=== PATIENT | female | born 1950 | race Two or more races ===

== ENCOUNTER → 2016-10-26 | Outpatient (CLI) | payer MEDICARE, OTHER ==
[2016-10-26 12:18] LABS: Basophils # (auto) 0 uL; Basophils % (auto) 0.6 % (0.0-2.0); Eosinophils # (auto) 0.2 uL; Eosinophils % (auto) 4.2 % (0.0-7.0); Hematocrit 38.6 % (36.0-46.0); Lymphocytes # (auto) 2.3 uL; Lymphocytes % (auto) 41.1 % (10.0-50.0); Mean Corpuscular Hemoglobin 30.5 pg (28.0-32.0); Mean Corpuscular Hgb Conc. 33.8 g/dL (32.0-36.0); Mean Corpuscular Volume 90.4 fL (80.0-100.0); Mean Platelet Volume 9.8 fL (6.9-10.8); Monocytes # (auto) 0.4 uL; Monocytes % (auto) 8.1 % (0.0-12.0); Neutrophils # (auto) 2.5 uL; Nucleated Red Blood Cells % 0.1 %; Platelet Count (auto) 246 10^3/uL (140-450); Red Cell Distribution Width 12.7 % (11.8-14.3); White Blood Cell 5.5 10^3/uL (4.4-10.8)
[2016-10-26 13:13] LABS: Albumin 3.7 g/dL (3.4-5.0); BUN/Creatinine Ratio 17.9; Bilirubin, Direct 0.1 mg/dL (0-0.2); Bilirubin, Total 0.6 mg/dL (0.2-1.0); Calcium 8.9 mg/dL (8.5-10.1); Potassium 4.3 mmol/L (3.5-5.1); Total Protein 7.7 g/dL (6.4-8.2)
== END | disposition home or self-care (01) ==
LOC: LAB 07:43
PROVIDERS: ATTEND Internal Medicine Cardiovascular Disease
DX: I10 Essential (primary) hypertension (principal); E78.00 Pure hypercholesterolemia, unspecified; K74.1 Hepatic sclerosis; E11.9 Type 2 diabetes mellitus without complications; E03.9 Hypothyroidism, unspecified; D64.9 Anemia, unspecified; E55.9 Vitamin D deficiency, unspecified
CPT/HCPCS: 36415; 80048; 80061; 80076; 82306; 83036; 84439; 84443; 85025

== ENCOUNTER → 2016-10-30 | Outpatient (CLI) | payer MEDICARE, OTHER | END | disposition home or self-care (01) | LOC: Rad HDHVI 15:38 | PROVIDERS: ATTEND Internal Medicine Cardiovascular Disease | DX: R06.02 Shortness of breath (principal); M47.894 Other spondylosis, thoracic region; M85.88 Other specified disorders of bone density and structure, other site; Q25.46 Tortuous aortic arch | CPT/HCPCS: 71020 ==

== ENCOUNTER → 2017-09-05 | Outpatient (CLI) | payer MEDICARE, OTHER ==
[2017-09-05 12:15] LABS: Urine Blood TRACE /uL (Negative); Urine Specific Gravity 1.016 (1.001-1.035)
[2017-09-05 12:39] LABS: Basophils # (auto) 0.1 uL; Eosinophils # (auto) 0.3 uL; Hematocrit 38.6 % (36.0-46.0); Hemoglobin 12.6 g/dL (12.2-16.2); Lymphocytes # (auto) 2.2 uL; Lymphocytes % (auto) 39.7 % (10.0-50.0); Mean Corpuscular Hemoglobin 29.9 pg (28.0-32.0); Mean Corpuscular Hgb Conc. 32.8 g/dL (32.0-36.0); Mean Corpuscular Volume 91.2 fL (80.0-100.0); Monocytes # (auto) 0.4 uL; Monocytes % (auto) 7.8 % (0.0-12.0); Neutrophils # (auto) 2.6 uL; Neutrophils % (auto) 46.5 % (37.0-80.0); Nucleated Red Blood Cells % 0.5 %; Platelet Count (auto) 260 10^3/uL (140-450); Red Blood Cells 4.23 10^6/uL (4.0-5.20); Red Cell Distribution Width 12.9 % (11.8-14.3); White Blood Cell 5.5 10^3/uL (4.4-10.8)
[2017-09-05 12:59] LABS: Free T4 (Free Thyroxine) 0.95 ng/dL (0.89-1.76)
[2017-09-05 13:28] LABS: Albumin 3.5 g/dL (3.4-5.0); BUN/Creatinine Ratio 17.2; Bilirubin, Total 0.4 mg/dL (0.2-1.0); Calcium 8.5 mg/dL (8.5-10.1); Potassium 4.4 mmol/L (3.5-5.1); Total Protein 7.4 g/dL (6.4-8.2)
== END | disposition home or self-care (01) ==
LOC: LAB 07:58
PROVIDERS: ATTEND Internal Medicine Cardiovascular Disease
DX: Z00.01 Encounter for general adult medical examination with abnormal findings (principal); E03.9 Hypothyroidism, unspecified; E55.9 Vitamin D deficiency, unspecified; E11.9 Type 2 diabetes mellitus without complications; D51.9 Vitamin B12 deficiency anemia, unspecified; N39.0 Urinary tract infection, site not specified; I10 Essential (primary) hypertension; E78.00 Pure hypercholesterolemia, unspecified
CPT/HCPCS: 36415; 80053; 80061; 81003; 82306; 82607; 83036; 84439; 84443; 85025; 87086

== ENCOUNTER → 2018-08-05 | Outpatient (CLI) | payer MEDICARE, OTHER ==
[2018-08-05 12:42] LABS: Urine Blood Negative /uL (Negative); Urine Specific Gravity 1.011 (1.001-1.035)
[2018-08-05 12:55] LABS: Basophils # (auto) 0 uL; Basophils % (auto) 0.4 % (0.0-2.0); Eosinophils # (auto) 0.1 uL; Eosinophils % (auto) 2.1 % (0.0-7.0); Hematocrit 36.8 % (36.0-46.0); Hemoglobin 12.5 g/dL (12.2-16.2); Lymphocytes % (auto) 34.4 % (10.0-50.0); Mean Corpuscular Hemoglobin 30.5 pg (28.0-32.0); Mean Corpuscular Hgb Conc. 33.9 g/dL (32.0-36.0); Mean Corpuscular Volume 90.1 fL (80.0-100.0); Monocytes # (auto) 0.4 uL; Monocytes % (auto) 6.8 % (0.0-12.0); Neutrophils # (auto) 3.2 uL; Neutrophils % (auto) 56.3 % (37.0-80.0); Platelet Count (auto) 244 10^3/uL (140-450); Red Blood Cells 4.09 10^6/uL (4.0-5.20); Red Cell Distribution Width 12.5 % (11.8-14.3); White Blood Cell 5.7 10^3/uL (4.4-10.8)
[2018-08-05 13:11] LABS: Potassium 3.9 mmol/L (3.5-5.1)
[2018-08-05 13:13] LABS: Free T4 (Free Thyroxine) 0.98 ng/dL (0.89-1.76)
[2018-08-05 13:14] LABS: Folate (Folic Acid) 18.85 ng/mL (5.38-24)
[2018-08-05 13:27] LABS: Albumin 3.8 g/dL (3.4-5.0); BUN/Creatinine Ratio 20.4; Bilirubin, Direct 0.1 mg/dL (0-0.2); Bilirubin, Total 0.4 mg/dL (0.2-1.0); Calcium 9.2 mg/dL (8.5-10.1); Total Protein 7.6 g/dL (6.4-8.2)
== END | disposition home or self-care (01) ==
LOC: LAB 11:06
PROVIDERS: ATTEND Internal Medicine Cardiovascular Disease
DX: E03.9 Hypothyroidism, unspecified (principal); K74.1 Hepatic sclerosis; D51.9 Vitamin B12 deficiency anemia, unspecified; E55.9 Vitamin D deficiency, unspecified; D52.9 Folate deficiency anemia, unspecified; Z79.899 Other long term (current) drug therapy
CPT/HCPCS: 36415; 80048; 80061; 80076; 81003; 82306; 82607; 82746; 83036; 84439; 84443; 85025

== ENCOUNTER → 2018-10-23 | Outpatient (CLI) | payer MEDICARE, OTHER ==
[2018-10-23 15:10] VITALS: BP 184/99
[2018-10-23 15:41] VITALS: BP 173/94
--- NOTE | 2018-10-23 15:41 | NUR ---
IN FOR CT SCAN OF HEAD WITH IV CONTRAST FOR DIZZINESS. TOLERATED PROCEDURE WELL. DISCHARGED TO CARE OF FAMILY. ALL CARE PROVIDED BY AICHA RASHID.
== END | disposition home or self-care (01) ==
LOC: Rad HDHVI 15:10
PROVIDERS: ATTEND Internal Medicine Cardiovascular Disease
DX: R51 Headache (principal); R42 Dizziness and giddiness; I67.2 Cerebral atherosclerosis
CPT/HCPCS: 70470; G0463; Q9967

== ENCOUNTER → 2018-10-28 | Outpatient (CLI) | payer MEDICARE, OTHER ==
[~2018-10-28] MED LIST: IOHEXOL 350 MG/ML 100ML IJ ONE
[2018-10-28 11:19] VITALS: BP 170/86
[2018-10-28 11:46] VITALS: BP 176/99
== END | disposition home or self-care (01) ==
LOC: Rad HDHVI 11:09
PROVIDERS: ATTEND Internal Medicine Cardiovascular Disease
DX: I08.1 Rheumatic disorders of both mitral and tricuspid valves (principal); I25.118 Atherosclerotic heart disease of native coronary artery with other forms of angina pectoris; I70.0 Atherosclerosis of aorta; I10 Essential (primary) hypertension; G20 Parkinson's disease; E78.5 Hyperlipidemia, unspecified; I73.9 Peripheral vascular disease, unspecified; E78.00 Pure hypercholesterolemia, unspecified; I63.9 Cerebral infarction, unspecified; I27.20 Pulmonary hypertension, unspecified
CPT/HCPCS: 70496; 93306; G0166; Q9967

== ENCOUNTER → 2018-10-29 | Outpatient (CLI) | payer MEDICARE, OTHER ==
[2018-10-29 11:14] VITALS: BP 155/92
[2018-10-29 11:44] VITALS: BP 155/97
== END | disposition home or self-care (01) ==
LOC: CHF HDHVI 10:37
PROVIDERS: ATTEND Internal Medicine Cardiovascular Disease
DX: I25.118 Atherosclerotic heart disease of native coronary artery with other forms of angina pectoris (principal); I10 Essential (primary) hypertension; I63.9 Cerebral infarction, unspecified; I73.9 Peripheral vascular disease, unspecified; G20 Parkinson's disease; E78.5 Hyperlipidemia, unspecified; E78.00 Pure hypercholesterolemia, unspecified
CPT/HCPCS: G0166

== ENCOUNTER → 2018-10-30 | Outpatient (CLI) | payer MEDICARE, OTHER ==
[2018-10-30 09:42] VITALS: BP 165/87
[2018-10-30 10:23] VITALS: BP 165/90
== END | disposition home or self-care (01) ==
LOC: CHF HDHVI 09:21
PROVIDERS: ATTEND Internal Medicine Cardiovascular Disease
DX: I25.118 Atherosclerotic heart disease of native coronary artery with other forms of angina pectoris (principal); I10 Essential (primary) hypertension; I73.9 Peripheral vascular disease, unspecified; I63.9 Cerebral infarction, unspecified; G20 Parkinson's disease; E78.5 Hyperlipidemia, unspecified; E78.00 Pure hypercholesterolemia, unspecified
CPT/HCPCS: G0166

== ENCOUNTER → 2018-10-31 | Outpatient (CLI) | payer MEDICARE, OTHER ==
[2018-10-31 10:14] VITALS: BP 173/89
[2018-10-31 10:45] VITALS: BP 160/95
== END | disposition home or self-care (01) ==
LOC: CHF HDHVI 09:54
PROVIDERS: ATTEND Internal Medicine Cardiovascular Disease
DX: I63.9 Cerebral infarction, unspecified (principal); I25.118 Atherosclerotic heart disease of native coronary artery with other forms of angina pectoris; G20 Parkinson's disease; E78.5 Hyperlipidemia, unspecified; E78.00 Pure hypercholesterolemia, unspecified; I10 Essential (primary) hypertension
CPT/HCPCS: G0166

== ENCOUNTER → 2018-11-01 | Outpatient (CLI) | payer MEDICARE, OTHER ==
[2018-11-01 10:23] VITALS: BP 167/86
[2018-11-01 10:57] VITALS: BP 186/96
== END | disposition home or self-care (01) ==
LOC: CHF HDHVI 10:12
PROVIDERS: ATTEND Internal Medicine Cardiovascular Disease
DX: I25.118 Atherosclerotic heart disease of native coronary artery with other forms of angina pectoris (principal); I63.9 Cerebral infarction, unspecified; E78.5 Hyperlipidemia, unspecified; E78.00 Pure hypercholesterolemia, unspecified; G20 Parkinson's disease; I10 Essential (primary) hypertension; R06.02 Shortness of breath
CPT/HCPCS: G0166

== ENCOUNTER → 2018-11-04 | Outpatient (CLI) | payer MEDICARE, OTHER ==
[2018-11-04 10:40] VITALS: BP 158/93
[2018-11-04 10:58] VITALS: BP 145/100
== END | disposition home or self-care (01) ==
LOC: CHF HDHVI 10:25
PROVIDERS: ATTEND Internal Medicine Cardiovascular Disease
DX: I25.118 Atherosclerotic heart disease of native coronary artery with other forms of angina pectoris (principal); I10 Essential (primary) hypertension; G20 Parkinson's disease; E78.5 Hyperlipidemia, unspecified; E78.00 Pure hypercholesterolemia, unspecified; I63.9 Cerebral infarction, unspecified
CPT/HCPCS: G0166

== ENCOUNTER → 2018-11-05 | Outpatient (CLI) | payer MEDICARE, OTHER ==
[2018-11-05 10:38] VITALS: BP 134/84
[2018-11-05 10:44] VITALS: BP 152/99
== END | disposition home or self-care (01) ==
LOC: CHF HDHVI 10:29
PROVIDERS: ATTEND Internal Medicine Cardiovascular Disease
DX: I25.118 Atherosclerotic heart disease of native coronary artery with other forms of angina pectoris (principal); I10 Essential (primary) hypertension; G20 Parkinson's disease; E78.5 Hyperlipidemia, unspecified; E78.00 Pure hypercholesterolemia, unspecified; R06.02 Shortness of breath; I63.9 Cerebral infarction, unspecified
CPT/HCPCS: G0166

== ENCOUNTER → 2018-11-06 | Outpatient (CLI) | payer MEDICARE, OTHER ==
[2018-11-06 10:33] VITALS: BP 151/91
[2018-11-06 11:10] VITALS: BP 152/94
== END | disposition home or self-care (01) ==
LOC: CHF HDHVI 09:51
PROVIDERS: ATTEND Internal Medicine Cardiovascular Disease
DX: I25.118 Atherosclerotic heart disease of native coronary artery with other forms of angina pectoris (principal); I10 Essential (primary) hypertension; G20 Parkinson's disease; E78.5 Hyperlipidemia, unspecified; E78.00 Pure hypercholesterolemia, unspecified; R06.02 Shortness of breath; I63.9 Cerebral infarction, unspecified
CPT/HCPCS: G0166

== ENCOUNTER → 2018-11-07 | Outpatient (CLI) | payer MEDICARE, OTHER ==
[2018-11-07 12:04] VITALS: BP 156/92
[2018-11-07 12:07] VITALS: BP 162/103
== END | disposition home or self-care (01) ==
LOC: CHF HDHVI 11:53
PROVIDERS: ATTEND Internal Medicine Cardiovascular Disease
DX: I25.118 Atherosclerotic heart disease of native coronary artery with other forms of angina pectoris (principal); I10 Essential (primary) hypertension; G20 Parkinson's disease; E78.5 Hyperlipidemia, unspecified; E78.00 Pure hypercholesterolemia, unspecified; R06.02 Shortness of breath; I63.9 Cerebral infarction, unspecified
CPT/HCPCS: G0166

== ENCOUNTER → 2018-11-08 | Outpatient (CLI) | payer MEDICARE, OTHER ==
[2018-11-08 10:54] VITALS: BP 143/90
[2018-11-08 10:55] VITALS: BP 148/86
== END | disposition home or self-care (01) ==
LOC: Rad HDHVI 08:46
PROVIDERS: ATTEND Internal Medicine Cardiovascular Disease
DX: I25.118 Atherosclerotic heart disease of native coronary artery with other forms of angina pectoris (principal); I10 Essential (primary) hypertension; I73.9 Peripheral vascular disease, unspecified; G20 Parkinson's disease; E78.5 Hyperlipidemia, unspecified; I63.9 Cerebral infarction, unspecified
CPT/HCPCS: G0166

== ENCOUNTER → 2018-11-11 | Outpatient (CLI) | payer MEDICARE, OTHER ==
[2018-11-11 10:37] VITALS: BP 154/88
[2018-11-11 11:00] VITALS: BP 147/91
== END | disposition home or self-care (01) ==
LOC: CHF HDHVI 10:26
PROVIDERS: ATTEND Internal Medicine Cardiovascular Disease
DX: I25.118 Atherosclerotic heart disease of native coronary artery with other forms of angina pectoris (principal); I73.9 Peripheral vascular disease, unspecified; G20 Parkinson's disease; I10 Essential (primary) hypertension; E78.5 Hyperlipidemia, unspecified; E78.00 Pure hypercholesterolemia, unspecified; R06.02 Shortness of breath; I63.9 Cerebral infarction, unspecified
CPT/HCPCS: G0166

== ENCOUNTER → 2018-11-12 | Outpatient (CLI) | payer MEDICARE, OTHER ==
[2018-11-12 09:56] VITALS: BP 152/88
[2018-11-12 10:37] VITALS: BP 167/98
== END | disposition home or self-care (01) ==
LOC: CHF HDHVI 09:38
PROVIDERS: ATTEND Internal Medicine Cardiovascular Disease
DX: I25.118 Atherosclerotic heart disease of native coronary artery with other forms of angina pectoris (principal); I10 Essential (primary) hypertension; I73.9 Peripheral vascular disease, unspecified; G20 Parkinson's disease; E78.5 Hyperlipidemia, unspecified; E78.00 Pure hypercholesterolemia, unspecified; I63.9 Cerebral infarction, unspecified
CPT/HCPCS: G0166

== ENCOUNTER → 2018-11-13 | Outpatient (CLI) | payer MEDICARE, OTHER ==
[2018-11-13 10:10] VITALS: BP 153/90
[2018-11-13 10:41] VITALS: BP 162/92
== END | disposition home or self-care (01) ==
LOC: CHF HDHVI 10:01
PROVIDERS: ATTEND Internal Medicine Cardiovascular Disease
DX: I25.118 Atherosclerotic heart disease of native coronary artery with other forms of angina pectoris (principal); I10 Essential (primary) hypertension; I73.9 Peripheral vascular disease, unspecified; G20 Parkinson's disease; E78.5 Hyperlipidemia, unspecified; E78.00 Pure hypercholesterolemia, unspecified; I63.9 Cerebral infarction, unspecified
CPT/HCPCS: G0166

== ENCOUNTER → 2018-11-14 | Outpatient (CLI) | payer MEDICARE, OTHER ==
[2018-11-14 10:07] VITALS: BP 153/89
[2018-11-14 10:25] VITALS: BP 159/93
== END | disposition home or self-care (01) ==
LOC: CHF HDHVI 10:02
PROVIDERS: ATTEND Internal Medicine Cardiovascular Disease
DX: I25.118 Atherosclerotic heart disease of native coronary artery with other forms of angina pectoris (principal); I10 Essential (primary) hypertension; I73.9 Peripheral vascular disease, unspecified; G20 Parkinson's disease; E78.5 Hyperlipidemia, unspecified; E78.00 Pure hypercholesterolemia, unspecified; I63.9 Cerebral infarction, unspecified
CPT/HCPCS: G0166

== ENCOUNTER → 2018-11-15 | Outpatient (CLI) | payer MEDICARE, OTHER ==
[2018-11-15 09:54] VITALS: BP 151/96
[2018-11-15 10:32] VITALS: BP 153/92
== END | disposition home or self-care (01) ==
LOC: CHF HDHVI 09:37
PROVIDERS: ATTEND Internal Medicine Cardiovascular Disease
DX: I25.118 Atherosclerotic heart disease of native coronary artery with other forms of angina pectoris (principal); I10 Essential (primary) hypertension; G20 Parkinson's disease; E78.5 Hyperlipidemia, unspecified; E78.00 Pure hypercholesterolemia, unspecified; I63.9 Cerebral infarction, unspecified
CPT/HCPCS: G0166

== ENCOUNTER → 2018-11-18 | Outpatient (CLI) | payer MEDICARE, OTHER ==
[2018-11-18 09:56] VITALS: BP 151/87
[2018-11-18 10:42] VITALS: BP 153/88
== END | disposition home or self-care (01) ==
LOC: CHF HDHVI 09:30
PROVIDERS: ATTEND Internal Medicine Cardiovascular Disease
DX: I25.118 Atherosclerotic heart disease of native coronary artery with other forms of angina pectoris (principal); I73.9 Peripheral vascular disease, unspecified; I10 Essential (primary) hypertension; G20 Parkinson's disease; E78.5 Hyperlipidemia, unspecified; E78.00 Pure hypercholesterolemia, unspecified; I63.9 Cerebral infarction, unspecified
CPT/HCPCS: G0166

== ENCOUNTER → 2018-11-19 | Outpatient (CLI) | payer MEDICARE, OTHER ==
--- NOTE | 2018-11-19 09:46 | NUR ---
Signature Attestation Statement: Natividad GEORGE performed this procedure EECP on this patient. Addendum: 11/19/18 at 1038 by ARNALDO GEORGE HDHI2 Amended: Links added.
[2018-11-19 10:36] VITALS: BP 146/88
--- NOTE | 2018-11-19 10:39 | NUR ---
Signature Attestation Statement: Natividad GEORGE performed this procedure EECP on this patient. Addendum: 11/19/18 at 1043 by ARNALDO GEORGE HDHI2 Amended: Links added.
--- NOTE | 2018-11-19 10:52 | NUR ---
Signature Attestation Statement: Natividad GEORGE performed this procedure EECP on this patient. Addendum: 11/19/18 at 1052 by ARNALDO GEORGE HDHI2 Amended: Links added.
[2018-11-19 10:53] VITALS: BP 169/93
--- NOTE | 2018-11-19 10:53 | NUR ---
Signature Attestation Statement: Natividad GEORGE performed this procedure EECP on this patient. Addendum: 11/19/18 at 1054 by ARNALDO GEORGE HDHI2 Amended: Links added.
== END | disposition home or self-care (01) ==
LOC: CHF HDHVI 10:17
PROVIDERS: ATTEND Internal Medicine Cardiovascular Disease
DX: I25.118 Atherosclerotic heart disease of native coronary artery with other forms of angina pectoris (principal); I10 Essential (primary) hypertension; I73.9 Peripheral vascular disease, unspecified; G20 Parkinson's disease; E78.5 Hyperlipidemia, unspecified; E78.00 Pure hypercholesterolemia, unspecified; I63.9 Cerebral infarction, unspecified
CPT/HCPCS: G0166

== ENCOUNTER → 2018-11-20 | Outpatient (CLI) | payer MEDICARE, OTHER ==
[2018-11-20 09:34] VITALS: BP 155/89
--- NOTE | 2018-11-20 09:34 | NUR ---
Signature Attestation Statement: I ROSS WILEY performed this procedure EECP on this patient. Addendum: 11/20/18 at 1014 by ROSS WILEY HDHI2 Amended: Links added.
--- NOTE | 2018-11-20 09:35 | NUR ---
Signature Attestation Statement: I ROSS WILEY performed this procedure EECP on this patient. Addendum: 11/20/18 at 1016 by ROSS WILEY HDHI2 Amended: Links added.
--- NOTE | 2018-11-20 10:13 | NUR ---
Signature Attestation Statement: I ROSS WILEY performed this procedure EECP on this patient. Addendum: 11/20/18 at 1013 by ROSS WILEY HDHI2 Amended: Links added.
[2018-11-20 10:17] VITALS: BP 149/96
--- NOTE | 2018-11-20 10:19 | NUR ---
Signature Attestation Statement: I ROSS WILEY performed this procedure EECP on this patient. Addendum: 11/20/18 at 1019 by ROSS WILEY HDHI2 Amended: Links added.
== END | disposition home or self-care (01) ==
LOC: CHF HDHVI 09:31
PROVIDERS: ATTEND Internal Medicine Cardiovascular Disease
DX: I25.118 Atherosclerotic heart disease of native coronary artery with other forms of angina pectoris (principal); I10 Essential (primary) hypertension; I73.9 Peripheral vascular disease, unspecified; G20 Parkinson's disease; E78.5 Hyperlipidemia, unspecified; E78.00 Pure hypercholesterolemia, unspecified; R06.02 Shortness of breath; I63.9 Cerebral infarction, unspecified
CPT/HCPCS: G0166

== ENCOUNTER → 2018-11-21 | Outpatient (CLI) | payer MEDICARE, OTHER ==
[2018-11-21 10:26] VITALS: BP 153/88
--- NOTE | 2018-11-21 10:27 | NUR ---
Signature Attestation Statement: I ROSS WILEY performed this procedure EECP on this patient. Addendum: 11/21/18 at 1028 by ROSS WILEY HDHI2 Amended: Links added.
[2018-11-21 10:29] VITALS: BP 160/92
--- NOTE | 2018-11-21 10:29 | NUR ---
Signature Attestation Statement: I ROSS WILEY performed this procedure EECP on this patient. Addendum: 11/21/18 at 1030 by ROSS WILEY HDHI2 Amended: Links added.
--- NOTE | 2018-11-21 10:31 | NUR ---
Signature Attestation Statement: I ROSS WILEY performed this procedure EECP on this patient. Addendum: 11/21/18 at 1031 by ROSS WILEY HDHI2 Amended: Links added.
--- NOTE | 2018-11-21 10:37 | NUR ---
Signature Attestation Statement: I ROSS WILEY performed this procedure EECP on this patient. Addendum: 11/21/18 at 1037 by ROSS WILEY HDHI2 Amended: Links added.
[2018-11-22 10:27] VITALS: BP 142/81
--- NOTE | 2018-11-22 10:27 | NUR ---
Signature Attestation Statement: I ROSS WILEY performed this procedure EECP on this patient. Addendum: 11/22/18 at 1027 by ROSS WILEY HDHI2 Amended: Links added.
--- NOTE | 2018-11-22 10:32 | NUR ---
Signature Attestation Statement: I ROSS WILEY performed this procedure EECP on this patient. Addendum: 11/22/18 at 1032 by ROSS WILEY HDHI2 Amended: Links added.
== END | disposition home or self-care (01) ==
LOC: CHF HDHVI 10:22
PROVIDERS: ATTEND Internal Medicine Cardiovascular Disease
DX: I25.118 Atherosclerotic heart disease of native coronary artery with other forms of angina pectoris (principal); I10 Essential (primary) hypertension; I73.9 Peripheral vascular disease, unspecified; G20 Parkinson's disease; E78.5 Hyperlipidemia, unspecified; E78.00 Pure hypercholesterolemia, unspecified; I63.9 Cerebral infarction, unspecified
CPT/HCPCS: G0166

== ENCOUNTER → 2018-11-22 | Outpatient (CLI) | payer MEDICARE, OTHER ==
[2018-11-22 09:41] VITALS: BP 150/79
--- NOTE | 2018-11-22 09:42 | NUR ---
Signature Attestation Statement: I ROSS WILEY performed this procedure EECP on this patient. Addendum: 11/22/18 at 0942 by ROSS WILEY HDHI2 Amended: Links added.
--- NOTE | 2018-11-22 09:43 | NUR ---
Signature Attestation Statement: I ROSS WILEY performed this procedure EECP on this patient. Addendum: 11/22/18 at 0944 by ROSS WILEY HDHI2 Amended: Links added.
== END | disposition home or self-care (01) ==
LOC: CHF HDHVI 09:24
PROVIDERS: ATTEND Internal Medicine Cardiovascular Disease
DX: I25.118 Atherosclerotic heart disease of native coronary artery with other forms of angina pectoris (principal); I10 Essential (primary) hypertension; I73.9 Peripheral vascular disease, unspecified; G20 Parkinson's disease; E78.5 Hyperlipidemia, unspecified; E78.00 Pure hypercholesterolemia, unspecified; I63.9 Cerebral infarction, unspecified
CPT/HCPCS: G0166

== ENCOUNTER → 2018-11-25 | Outpatient (CLI) | payer MEDICARE, OTHER ==
[2018-11-25 10:19] VITALS: BP 131/73
--- NOTE | 2018-11-25 10:20 | NUR ---
Signature Attestation Statement: I ROSS WILEY performed this procedure EECP on this patient. Addendum: 11/25/18 at 1020 by ROSS WILEY HDHI2 Amended: Links added.
--- NOTE | 2018-11-25 10:21 | NUR ---
Signature Attestation Statement: I ROSS WILEY performed this procedure EECP on this patient. Addendum: 11/25/18 at 1021 by ROSS WILEY HDHI2 Amended: Links added.
--- NOTE | 2018-11-25 10:25 | NUR ---
Signature Attestation Statement: I ROSS WILEY performed this procedure EECP on this patient. Addendum: 11/25/18 at 1026 by ROSS WILEY HDHI2 Amended: Links added.
[2018-11-25 10:26] VITALS: BP 131/78
--- NOTE | 2018-11-25 10:26 | NUR ---
Signature Attestation Statement: I ROSS WILEY performed this procedure EECP on this patient. Addendum: 11/25/18 at 1027 by ROSS WILEY HDHI2 Amended: Links added.
== END | disposition home or self-care (01) ==
LOC: CHF HDHVI 10:08
PROVIDERS: ATTEND Internal Medicine Cardiovascular Disease
DX: I25.118 Atherosclerotic heart disease of native coronary artery with other forms of angina pectoris (principal); I10 Essential (primary) hypertension; I73.9 Peripheral vascular disease, unspecified; G20 Parkinson's disease; E78.5 Hyperlipidemia, unspecified; E78.00 Pure hypercholesterolemia, unspecified; I63.9 Cerebral infarction, unspecified
CPT/HCPCS: G0166

== ENCOUNTER → 2018-11-26 | Outpatient (CLI) | payer MEDICARE, OTHER ==
[2018-11-26 10:25] VITALS: BP_SYST 136; BP_SYST 150; BP_DIAS 81; BP_DIAS 85
--- NOTE | 2018-11-26 10:25 | NUR ---
Signature Attestation Statement: I ROSS WILEY performed this procedure EECP on this patient. Addendum: 11/26/18 at 1025 by ROSS WILEY HDHI2 Amended: Links added.
--- NOTE | 2018-11-26 10:26 | NUR ---
Signature Attestation Statement: I ROSS WILEY performed this procedure EECP on this patient. Addendum: 11/26/18 at 1026 by ROSS WILEY HDHI2 Amended: Links added.
--- NOTE | 2018-11-26 10:27 | NUR ---
Signature Attestation Statement: I ROSS WILEY performed this procedure EECP on this patient. Addendum: 11/26/18 at 1027 by ROSS WILEY HDHI2 Amended: Links added.
--- NOTE | 2018-11-26 10:30 | NUR ---
Signature Attestation Statement: I ROSS WILEY performed this procedure EECP on this patient. Addendum: 11/26/18 at 1031 by ROSS WILEY HDHI2 Amended: Links added.
== END | disposition home or self-care (01) ==
LOC: CHF HDHVI 10:20
PROVIDERS: ATTEND Internal Medicine Cardiovascular Disease
DX: I25.118 Atherosclerotic heart disease of native coronary artery with other forms of angina pectoris (principal); I10 Essential (primary) hypertension; I73.9 Peripheral vascular disease, unspecified; G20 Parkinson's disease; E78.5 Hyperlipidemia, unspecified; E78.00 Pure hypercholesterolemia, unspecified; I63.9 Cerebral infarction, unspecified
CPT/HCPCS: G0166

== ENCOUNTER → 2018-11-27 | Outpatient (CLI) | payer MEDICARE, OTHER ==
[2018-11-27 10:45] VITALS: BP 145/82
--- NOTE | 2018-11-27 10:46 | NUR ---
Signature Attestation Statement: I ROSS WILEY performed this procedure EECP on this patient. Addendum: 11/27/18 at 1047 by ROSS WILEY HDHI2 Amended: Links added.
[2018-11-27 10:47] VITALS: BP 151/89
[2018-11-27 10:48] VITALS: BP 151/89
--- NOTE | 2018-11-27 10:49 | NUR ---
Signature Attestation Statement: I ROSS WILEY performed this procedure EECP on this patient. Addendum: 11/27/18 at 1050 by ROSS WILEY HDHI2 Amended: Links added.
--- NOTE | 2018-11-27 10:49 | NUR ---
Signature Attestation Statement: I ROSS WILEY performed this procedure EECP on this patient. Addendum: 11/27/18 at 1049 by ROSS WILEY HDHI2 Amended: Links added.
--- NOTE | 2018-11-27 11:17 | NUR ---
Signature Attestation Statement: I ROSS WILEY performed this procedure EECP on this patient. Addendum: 11/27/18 at 1117 by ROSS WILEY HDHI2 Amended: Links added.
== END | disposition home or self-care (01) ==
LOC: CHF HDHVI 10:12
PROVIDERS: ATTEND Internal Medicine Cardiovascular Disease
DX: I25.118 Atherosclerotic heart disease of native coronary artery with other forms of angina pectoris (principal); I10 Essential (primary) hypertension; I73.9 Peripheral vascular disease, unspecified; G20 Parkinson's disease; E78.5 Hyperlipidemia, unspecified; E78.00 Pure hypercholesterolemia, unspecified; R06.02 Shortness of breath; I63.9 Cerebral infarction, unspecified
CPT/HCPCS: G0166

== ENCOUNTER → 2018-11-28 | Outpatient (CLI) | payer MEDICARE, OTHER ==
[2018-11-28 10:19] VITALS: BP 140/83
--- NOTE | 2018-11-28 10:19 | NUR ---
Signature Attestation Statement: I ROSS WILEY performed this procedure EECP on this patient. Addendum: 11/28/18 at 1043 by ROSS WILEY HDHI2 Amended: Links added.
[2018-11-28 10:43] VITALS: BP 153/82
--- NOTE | 2018-11-28 10:43 | NUR ---
Signature Attestation Statement: I ROSS WILEY performed this procedure EECP on this patient. Addendum: 11/28/18 at 1044 by ROSS WILEY HDHI2 Amended: Links added.
--- NOTE | 2018-11-28 10:47 | NUR ---
Signature Attestation Statement: I ROSS WILEY performed this procedure EECP on this patient. Addendum: 11/28/18 at 1048 by ROSS WILEY HDHI2 Amended: Links added.
== END | disposition home or self-care (01) ==
LOC: CHF HDHVI 10:15
PROVIDERS: ATTEND Internal Medicine Cardiovascular Disease
DX: I25.118 Atherosclerotic heart disease of native coronary artery with other forms of angina pectoris (principal); I10 Essential (primary) hypertension; E78.5 Hyperlipidemia, unspecified; E78.00 Pure hypercholesterolemia, unspecified; I63.9 Cerebral infarction, unspecified; G20 Parkinson's disease
CPT/HCPCS: G0166

== ENCOUNTER → 2018-11-29 | Outpatient (CLI) | payer MEDICARE, OTHER ==
[2018-11-29 10:36] VITALS: BP 138/77
--- NOTE | 2018-11-29 10:36 | NUR ---
Signature Attestation Statement: I ROSS WILEY performed this procedure EECP on this patient. Addendum: 11/29/18 at 1037 by ROSS WILEY HDHI2 Amended: Links added.
[2018-11-29 10:37] VITALS: BP 145/84
--- NOTE | 2018-11-29 10:38 | NUR ---
Signature Attestation Statement: I ROSS WILEY performed this procedure EECP on this patient. Addendum: 11/29/18 at 1038 by ROSS WILEY HDHI2 Amended: Links added.
--- NOTE | 2018-11-29 10:39 | NUR ---
Signature Attestation Statement: I ROSS WILEY performed this procedure EECP on this patient. Addendum: 11/29/18 at 1039 by ROSS WILEY HDHI2 Amended: Links added.
--- NOTE | 2018-11-29 10:48 | NUR ---
Signature Attestation Statement: I ROSS WILEY performed this procedure EECP on this patient. Addendum: 11/29/18 at 1048 by ROSS WILEY HDHI2 Amended: Links added.
== END | disposition home or self-care (01) ==
LOC: CHF HDHVI 10:31
PROVIDERS: ATTEND Internal Medicine Cardiovascular Disease
DX: I25.118 Atherosclerotic heart disease of native coronary artery with other forms of angina pectoris (principal); I10 Essential (primary) hypertension; I73.9 Peripheral vascular disease, unspecified; G20 Parkinson's disease; E78.5 Hyperlipidemia, unspecified; E78.00 Pure hypercholesterolemia, unspecified; I63.9 Cerebral infarction, unspecified
CPT/HCPCS: G0166

== ENCOUNTER → 2018-12-02 | Outpatient (CLI) | payer MEDICARE, OTHER ==
[2018-12-02 10:47] VITALS: BP 138/78
--- NOTE | 2018-12-02 10:47 | NUR ---
Signature Attestation Statement: I ROSS WILEY performed this procedure EECP on this patient. Addendum: 12/02/18 at 1048 by ROSS WILEY HDHI2 Amended: Links added.
[2018-12-02 10:48] VITALS: BP 136/83
--- NOTE | 2018-12-02 10:49 | NUR ---
Signature Attestation Statement: I ROSS WILEY performed this procedure EECP on this patient. Addendum: 12/02/18 at 1050 by ROSS WILEY HDHI2 Amended: Links added.
--- NOTE | 2018-12-02 10:50 | NUR ---
Signature Attestation Statement: I ROSS WILEY performed this procedure EECP on this patient. Addendum: 12/02/18 at 1051 by ROSS WILEY HDHI2 Amended: Links added.
--- NOTE | 2018-12-02 10:54 | NUR ---
Signature Attestation Statement: I ROSS WILEY performed this procedure EECP on this patient. Addendum: 12/02/18 at 1055 by ROSS WILEY HDHI2 Amended: Links added.
== END | disposition home or self-care (01) ==
LOC: CHF HDHVI 10:29
PROVIDERS: ATTEND Internal Medicine Cardiovascular Disease
DX: I25.118 Atherosclerotic heart disease of native coronary artery with other forms of angina pectoris (principal); I10 Essential (primary) hypertension; I73.9 Peripheral vascular disease, unspecified; G20 Parkinson's disease; E78.5 Hyperlipidemia, unspecified; E78.00 Pure hypercholesterolemia, unspecified; I63.9 Cerebral infarction, unspecified
CPT/HCPCS: G0166

== ENCOUNTER → 2018-12-03 | Outpatient (CLI) | payer MEDICARE, OTHER ==
[2018-12-03 10:54] VITALS: BP 141/78
[2018-12-03 10:55] VITALS: BP 140/87
--- NOTE | 2018-12-03 10:55 | NUR ---
Signature Attestation Statement: I ROSS WILEY performed this procedure EECP on this patient. Addendum: 12/03/18 at 1055 by ROSS WILEY HDHI2 Amended: Links added.
--- NOTE | 2018-12-03 10:55 | NUR ---
Signature Attestation Statement: I ROSS WILEY performed this procedure EECP on this patient. Addendum: 12/03/18 at 1056 by ROSS WILEY HDHI2 Amended: Links added.
--- NOTE | 2018-12-03 10:59 | NUR ---
Signature Attestation Statement: I ROSS WILEY performed this procedure EECP on this patient. Addendum: 12/03/18 at 1100 by ROSS WILEY HDHI2 Amended: Links added.
== END | disposition home or self-care (01) ==
LOC: CHF HDHVI 10:22
PROVIDERS: ATTEND Internal Medicine Cardiovascular Disease
DX: I25.118 Atherosclerotic heart disease of native coronary artery with other forms of angina pectoris (principal); I10 Essential (primary) hypertension; I73.9 Peripheral vascular disease, unspecified; G20 Parkinson's disease; E78.5 Hyperlipidemia, unspecified; E78.00 Pure hypercholesterolemia, unspecified; I63.9 Cerebral infarction, unspecified
CPT/HCPCS: G0166

== ENCOUNTER → 2018-12-04 | Outpatient (CLI) | payer MEDICARE, OTHER ==
[2018-12-04 10:25] VITALS: BP 142/83
--- NOTE | 2018-12-04 10:25 | NUR ---
Signature Attestation Statement: I ROSS WILEY performed this procedure EECP on this patient. Addendum: 12/04/18 at 1026 by ROSS WILEY HDHI2 Amended: Links added.
== END | disposition home or self-care (01) ==
LOC: CHF HDHVI 10:14
PROVIDERS: ATTEND Internal Medicine Cardiovascular Disease
DX: I25.118 Atherosclerotic heart disease of native coronary artery with other forms of angina pectoris (principal); I10 Essential (primary) hypertension; I73.9 Peripheral vascular disease, unspecified; G20 Parkinson's disease; E78.5 Hyperlipidemia, unspecified; E78.00 Pure hypercholesterolemia, unspecified; I63.9 Cerebral infarction, unspecified
CPT/HCPCS: G0166

== ENCOUNTER → 2018-12-05 | Outpatient (CLI) | payer MEDICARE, OTHER ==
[2018-12-05 09:52] VITALS: BP 158/89
--- NOTE | 2018-12-05 09:53 | NUR ---
Signature Attestation Statement: I ROSS WILEY performed this procedure EECP on this patient. Addendum: 12/05/18 at 0953 by ROSS WILEY HDHI2 Amended: Links added.
--- NOTE | 2018-12-05 09:53 | NUR ---
Signature Attestation Statement: I ROSS WILEY performed this procedure EECP on this patient. Addendum: 12/05/18 at 0954 by ROSS WILEY HDHI2 Amended: Links added.
--- NOTE | 2018-12-05 09:58 | NUR ---
Signature Attestation Statement: I ROSS WILEY performed this procedure EECP on this patient. Addendum: 12/05/18 at 1058 by ROSS WILEY HDHI2 Amended: Links added.
--- NOTE | 2018-12-05 10:01 | NUR ---
Signature Attestation Statement: I ROSS WILEY performed this procedure EECP on this patient. Addendum: 12/05/18 at 1002 by ROSS WILEY HDHI2 Amended: Links added.
[2018-12-05 10:02] VITALS: BP 161/89
== END | disposition home or self-care (01) ==
LOC: CHF HDHVI 09:21
PROVIDERS: ATTEND Internal Medicine Cardiovascular Disease
DX: I25.118 Atherosclerotic heart disease of native coronary artery with other forms of angina pectoris (principal); R06.02 Shortness of breath; I10 Essential (primary) hypertension; I63.9 Cerebral infarction, unspecified; G20 Parkinson's disease; E78.5 Hyperlipidemia, unspecified; E78.00 Pure hypercholesterolemia, unspecified
CPT/HCPCS: G0166

== ENCOUNTER → 2018-12-06 | Outpatient (CLI) | payer MEDICARE, OTHER ==
[2018-12-06 09:58] VITALS: BP 141/81
--- NOTE | 2018-12-06 09:58 | NUR ---
Signature Attestation Statement: I ROSS WILEY performed this procedure EECP on this patient. Addendum: 12/06/18 at 0959 by ROSS WILEY HDHI2 Amended: Links added.
--- NOTE | 2018-12-06 10:03 | NUR ---
Signature Attestation Statement: I ROSS WILEY performed this procedure EECP on this patient. Addendum: 12/06/18 at 1004 by ROSS WILEY HDHI2 Amended: Links added.
--- NOTE | 2018-12-06 10:08 | NUR ---
Signature Attestation Statement: I ROSS WILEY performed this procedure EECP on this patient. Addendum: 12/06/18 at 1009 by ROSS WILEY HDHI2 Amended: Links added.
[2018-12-06 10:09] VITALS: BP 160/87
--- NOTE | 2018-12-06 10:15 | NUR ---
Signature Attestation Statement: I ROSS WILEY performed this procedure EECP on this patient. Addendum: 12/06/18 at 1015 by ROSS WILEY HDHI2 Amended: Links added.
== END | disposition home or self-care (01) ==
LOC: CHF HDHVI 09:55
PROVIDERS: ATTEND Internal Medicine Cardiovascular Disease
DX: I25.118 Atherosclerotic heart disease of native coronary artery with other forms of angina pectoris (principal); G20 Parkinson's disease; I10 Essential (primary) hypertension; E78.5 Hyperlipidemia, unspecified; E78.00 Pure hypercholesterolemia, unspecified; I63.9 Cerebral infarction, unspecified; Z79.82 Long term (current) use of aspirin; Z79.899 Other long term (current) drug therapy
CPT/HCPCS: G0166

== ENCOUNTER → 2018-12-09 | Outpatient (CLI) | payer MEDICARE, OTHER ==
[2018-12-09 11:16] VITALS: BP 142/79
[2018-12-09 11:17] VITALS: BP 153/88
--- NOTE | 2018-12-09 11:17 | NUR ---
Signature Attestation Statement: I ROSS WILEY performed this procedure EECP on this patient. Addendum: 12/09/18 at 1117 by ROSS WILEY HDHI2 Amended: Links added.
--- NOTE | 2018-12-09 11:17 | NUR ---
Signature Attestation Statement: I ROSS WILEY performed this procedure EECP on this patient. Addendum: 12/09/18 at 1118 by ROSS WILEY HDHI2 Amended: Links added.
--- NOTE | 2018-12-09 11:22 | NUR ---
Signature Attestation Statement: I ROSS WILEY performed this procedure EECP on this patient. Addendum: 12/09/18 at 1122 by ROSS WILEY HDHI2 Amended: Links added.
== END | disposition home or self-care (01) ==
LOC: CHF HDHVI 11:11
PROVIDERS: ATTEND Internal Medicine Cardiovascular Disease
DX: I25.118 Atherosclerotic heart disease of native coronary artery with other forms of angina pectoris (principal); I10 Essential (primary) hypertension; I73.9 Peripheral vascular disease, unspecified; G20 Parkinson's disease; E78.5 Hyperlipidemia, unspecified; E78.00 Pure hypercholesterolemia, unspecified; I63.9 Cerebral infarction, unspecified
CPT/HCPCS: G0166

== ENCOUNTER → 2018-12-10 | Outpatient (CLI) | payer MEDICARE, OTHER ==
[2018-12-10 10:12] VITALS: BP 145/86
--- NOTE | 2018-12-10 10:12 | NUR ---
Signature Attestation Statement: I ROSS WILEY performed this procedure EECP on this patient. Addendum: 12/10/18 at 1013 by ROSS WILEY HDHI2 Amended: Links added.
[2018-12-10 10:42] VITALS: BP 162/91
--- NOTE | 2018-12-10 10:43 | NUR ---
Signature Attestation Statement: I ROSS WILEY performed this procedure EECP on this patient. Addendum: 12/10/18 at 1044 by ROSS WILEY HDHI2 Amended: Links added.
--- NOTE | 2018-12-10 10:43 | NUR ---
Signature Attestation Statement: I ROSS WILEY performed this procedure EECP on this patient. Addendum: 12/10/18 at 1043 by ROSS WILEY HDHI2 Amended: Links added.
--- NOTE | 2018-12-10 10:49 | NUR ---
Signature Attestation Statement: I ROSS WILEY performed this procedure EECP on this patient. Addendum: 12/10/18 at 1049 by ROSS WILEY HDHI2 Amended: Links added.
== END | disposition home or self-care (01) ==
LOC: CHF HDHVI 09:00
PROVIDERS: ATTEND Internal Medicine Cardiovascular Disease
DX: I25.118 Atherosclerotic heart disease of native coronary artery with other forms of angina pectoris (principal); I10 Essential (primary) hypertension; I73.9 Peripheral vascular disease, unspecified; G20 Parkinson's disease; E78.5 Hyperlipidemia, unspecified; E78.00 Pure hypercholesterolemia, unspecified; I63.9 Cerebral infarction, unspecified
CPT/HCPCS: G0166

== ENCOUNTER → 2018-12-11 | Outpatient (CLI) | payer MEDICARE, OTHER ==
[2018-12-11 10:44] VITALS: BP 136/81
[2018-12-11 10:45] VITALS: BP 145/89
--- NOTE | 2018-12-11 10:45 | NUR ---
Signature Attestation Statement: I ROSS WILEY performed this procedure EECP on this patient. Addendum: 12/11/18 at 1045 by ROSS WILEY HDHI2 Amended: Links added.
--- NOTE | 2018-12-11 10:46 | NUR ---
Signature Attestation Statement: I ROSS WILEY performed this procedure EECP on this patient. Addendum: 12/11/18 at 1046 by ROSS WILEY HDHI2 Amended: Links added.
--- NOTE | 2018-12-11 10:52 | NUR ---
Signature Attestation Statement: I ROSS WILEY performed this procedure EECP on this patient. Addendum: 12/11/18 at 1052 by ROSS WILEY HDHI2 Amended: Links added.
== END | disposition home or self-care (01) ==
LOC: CHF HDHVI 10:03
PROVIDERS: ATTEND Internal Medicine Cardiovascular Disease
DX: I25.118 Atherosclerotic heart disease of native coronary artery with other forms of angina pectoris (principal); I10 Essential (primary) hypertension; I73.9 Peripheral vascular disease, unspecified; G20 Parkinson's disease; E78.5 Hyperlipidemia, unspecified; E78.00 Pure hypercholesterolemia, unspecified; I63.9 Cerebral infarction, unspecified
CPT/HCPCS: G0166

== ENCOUNTER → 2018-12-12 | Outpatient (CLI) | payer MEDICARE, OTHER ==
[2018-12-12 10:23] VITALS: BP 152/82
--- NOTE | 2018-12-12 10:23 | NUR ---
Signature Attestation Statement: I ROSS WILEY performed this procedure EECP on this patient. Addendum: 12/12/18 at 1024 by ROSS WILEY HDHI2 Amended: Links added.
[2018-12-12 11:00] VITALS: BP 162/90
--- NOTE | 2018-12-12 11:00 | NUR ---
Signature Attestation Statement: I ROSS WILEY performed this procedure EECP on this patient. Addendum: 12/12/18 at 1100 by ROSS WILEY HDHI2 Amended: Links added.
--- NOTE | 2018-12-12 11:34 | NUR ---
Signature Attestation Statement: I ROSS WILEY performed this procedure EECP on this patient. Addendum: 12/12/18 at 1134 by ROSS WILEY HDHI2 Amended: Links added.
== END | disposition home or self-care (01) ==
LOC: CHF HDHVI 10:14
PROVIDERS: ATTEND Internal Medicine Cardiovascular Disease
DX: I25.118 Atherosclerotic heart disease of native coronary artery with other forms of angina pectoris (principal); I63.9 Cerebral infarction, unspecified; I10 Essential (primary) hypertension; I73.9 Peripheral vascular disease, unspecified; G20 Parkinson's disease; E78.5 Hyperlipidemia, unspecified; E78.00 Pure hypercholesterolemia, unspecified
CPT/HCPCS: G0166

== ENCOUNTER → 2018-12-13 | Outpatient (CLI) | payer MEDICARE, OTHER ==
[2018-12-13 10:37] VITALS: BP 149/87
--- NOTE | 2018-12-13 10:37 | NUR ---
Signature Attestation Statement: I ROSS WILEY performed this procedure EECP on this patient. Addendum: 12/13/18 at 1038 by ROSS WILEY HDHI2 Amended: Links added.
[2018-12-13 10:38] VITALS: BP 157/53
--- NOTE | 2018-12-13 10:38 | NUR ---
Signature Attestation Statement: I ROSS WILEY performed this procedure EECP on this patient. Addendum: 12/13/18 at 1039 by ROSS WILEY HDHI2 Amended: Links added.
--- NOTE | 2018-12-13 10:42 | NUR ---
Signature Attestation Statement: I ROSS WILEY performed this procedure EECP on this patient. Addendum: 12/13/18 at 1043 by ROSS WILEY HDHI2 Amended: Links added.
== END | disposition home or self-care (01) ==
LOC: CHF HDHVI 10:10
PROVIDERS: ATTEND Internal Medicine Cardiovascular Disease
DX: I25.118 Atherosclerotic heart disease of native coronary artery with other forms of angina pectoris (principal); I10 Essential (primary) hypertension; I63.9 Cerebral infarction, unspecified; R06.02 Shortness of breath; G20 Parkinson's disease; E78.5 Hyperlipidemia, unspecified; E78.00 Pure hypercholesterolemia, unspecified
CPT/HCPCS: G0166

== ENCOUNTER → 2019-08-19 | Outpatient (CLI) | payer MEDICARE, OTHER ==
[2019-08-19 12:11] LABS: Basophils # (auto) 0 10 ^3/uL (0-0.2); Basophils % (auto) 0.5 % (0.0-2.0); Eosinophils # (auto) 0.2 10 ^3/uL (0-0.8); Eosinophils % (auto) 3.9 % (0.0-7.0); Hematocrit 38.2 % (36.0-46.0); Hemoglobin 12.7 g/dL (12.2-16.2); Lymphocytes # (auto) 1.6 10 ^3/uL (0.4-5.4); Mean Corpuscular Hemoglobin 30.2 pg (28.0-32.0); Mean Corpuscular Hgb Conc. 33.2 g/dL (32.0-36.0); Mean Corpuscular Volume 90.9 fL (80.0-100.0); Monocytes # (auto) 0.4 10 ^3/uL (0-1.3); Monocytes % (auto) 6.7 % (0.0-12.0); Neutrophils # (auto) 3.4 10 ^3/uL (1.6-8.6); Neutrophils % (auto) 60.9 % (37.0-80.0); Platelet Count (auto) 228 10^3/uL (140-450); Red Cell Distribution Width 12.8 % (11.8-14.3); White Blood Cell 5.6 10^3/uL (4.4-10.8)
[2019-08-19 12:13] LABS: Urine Blood TRACE /uL (Negative); Urine Specific Gravity 1.014 (1.001-1.035)
[2019-08-19 12:21] LABS: Potassium 4.1 mmol/L (3.5-5.1)
[2019-08-19 12:27] LABS: Albumin 3.6 g/dL (3.4-5.0); BUN/Creatinine Ratio 19.7; Bilirubin, Total 0.6 mg/dL (0.2-1.0); Calcium 8.7 mg/dL (8.5-10.1); Magnesium 2.2 mg/dL (1.6-2.6); Total Protein 7.5 g/dL (6.4-8.2)
== END | disposition home or self-care (01) ==
LOC: CHF HDHVI 07:40
PROVIDERS: ATTEND Internal Medicine Cardiovascular Disease
DX: N39.0 Urinary tract infection, site not specified (principal); E03.9 Hypothyroidism, unspecified; K90.9 Intestinal malabsorption, unspecified; Z79.899 Other long term (current) drug therapy; D51.9 Vitamin B12 deficiency anemia, unspecified; Z00.00 Encounter for general adult medical examination without abnormal findings
CPT/HCPCS: 36415; 80053; 80061; 81003; 82306; 82607; 83036; 83735; 84436; 84443; 85025

== ENCOUNTER → 2020-09-07 | Outpatient (CLI) | payer MEDICARE, OTHER ==
[2020-09-07 11:26] LABS: Basophils # (auto) 0 10 ^3/uL (0-0.2); Basophils % (auto) 0.6 % (0.0-2.0); Eosinophils # (auto) 0.3 10 ^3/uL (0-0.8); Eosinophils % (auto) 4.8 % (0.0-7.0); Hematocrit 37.2 % (36.0-46.0); Hemoglobin 12.7 g/dL (12.2-16.2); Lymphocytes # (auto) 2.1 10 ^3/uL (0.4-5.4); Lymphocytes % (auto) 33.9 % (10.0-50.0); Mean Corpuscular Hemoglobin 31.2 pg (28.0-32.0); Mean Corpuscular Hgb Conc. 34.2 g/dL (32.0-36.0); Mean Corpuscular Volume 91.1 fL (80.0-100.0); Monocytes # (auto) 0.4 10 ^3/uL (0-1.3); Monocytes % (auto) 7.1 % (0.0-12.0); Neutrophils # (auto) 3.3 10 ^3/uL (1.6-8.6); Neutrophils % (auto) 53.6 % (37.0-80.0); Red Blood Cells 4.08 10^6/uL (4.0-5.20); Red Cell Distribution Width 12.7 % (11.8-14.3); White Blood Cell 6.1 10^3/uL (4.4-10.8)
[2020-09-07 11:39] LABS: Potassium 4.2 mmol/L (3.5-5.1)
[2020-09-07 11:49] LABS: Albumin 3.4 g/dL (3.4-5.0); BUN/Creatinine Ratio 18.5; Bilirubin, Total 0.6 mg/dL (0.2-1.0); Calcium 8.9 mg/dL (8.5-10.1); Total Protein 7.7 g/dL (6.4-8.2)
[2020-09-07 11:50] LABS: Free T4 (Free Thyroxine) 1.11 ng/dL (0.89-1.76)
== END | disposition home or self-care (01) ==
LOC: LAB 07:17
PROVIDERS: ATTEND Internal Medicine Cardiovascular Disease
DX: D51.3 Other dietary vitamin B12 deficiency anemia (principal); I10 Essential (primary) hypertension; E11.9 Type 2 diabetes mellitus without complications; E55.9 Vitamin D deficiency, unspecified; D64.9 Anemia, unspecified; R00.2 Palpitations; R53.1 Weakness; R30.0 Dysuria
CPT/HCPCS: 36415; 80053; 80061; 82306; 82607; 83036; 84439; 84443; 85025

== ENCOUNTER → 2021-03-31 | Outpatient (CLI) | payer MEDICARE, OTHER ==
[2021-03-31 11:31] LABS: Potassium 4.1 mmol/L (3.5-5.1)
[2021-03-31 11:56] LABS: Albumin 3.8 g/dL (3.4-5.0); BUN/Creatinine Ratio 21.4; Bilirubin, Total 0.5 mg/dL (0.2-1.0); Calcium 9.1 mg/dL (8.5-10.1); Total Protein 7.7 g/dL (6.4-8.2)
== END | disposition home or self-care (01) ==
LOC: LAB 07:21
PROVIDERS: ATTEND Internal Medicine Cardiovascular Disease
DX: E11.9 Type 2 diabetes mellitus without complications (principal); E03.9 Hypothyroidism, unspecified; E78.5 Hyperlipidemia, unspecified; I10 Essential (primary) hypertension
CPT/HCPCS: 36415; 80053; 80061; 83036; 84439; 84443

== ENCOUNTER → 2022-02-28 | Outpatient (CLI) | payer MEDICARE, OTHER ==
[2022-02-28 15:45] LABS: Basophils # (auto) 0 10 ^3/uL (0-0.2); Basophils % (auto) 0.6 % (0.0-2.0); Eosinophils # (auto) 0.4 10 ^3/uL (0-0.8); Eosinophils % (auto) 6.3 % (0.0-7.0); Hematocrit 38.2 % (36.0-46.0); Hemoglobin 12.9 g/dL (12.2-16.2); Lymphocytes # (auto) 1.7 10 ^3/uL (0.4-5.4); Lymphocytes % (auto) 27.8 % (10.0-50.0); Mean Corpuscular Hemoglobin 31.2 pg (28.0-32.0); Mean Corpuscular Hgb Conc. 33.9 g/dL (32.0-36.0); Mean Corpuscular Volume 92.1 fL (80.0-100.0); Monocytes # (auto) 0.5 10 ^3/uL (0-1.3); Monocytes % (auto) 7.4 % (0.0-12.0); Neutrophils # (auto) 3.5 10 ^3/uL (1.6-8.6); Neutrophils % (auto) 57.9 % (37.0-80.0); Nucleated Red Blood Cells % 0.2 %; Red Blood Cells 4.15 10^6/uL (4.0-5.20); Red Cell Distribution Width 12.6 % (11.8-14.3); White Blood Cell 6.1 10^3/uL (4.4-10.8)
[2022-02-28 15:49] LABS: Albumin 3.8 g/dL (3.4-5.0); Calcium 8.9 mg/dL (8.5-10.1); Potassium 4.5 mmol/L (3.5-5.1)
[2022-02-28 15:56] LABS: BUN/Creatinine Ratio 23.6; Bilirubin, Total 0.9 mg/dL (0.2-1.0); Total Protein 7.1 g/dL (6.4-8.2)
[2022-02-28 16:09] LABS: Free T4 (Free Thyroxine) 1.12 ng/dL (0.89-1.76)
== END | disposition home or self-care (01) ==
LOC: LAB 07:54
PROVIDERS: ATTEND Internal Medicine Cardiovascular Disease
DX: I10 Essential (primary) hypertension (principal); E55.9 Vitamin D deficiency, unspecified
CPT/HCPCS: 36415; 80053; 80061; 82306; 82607; 83036; 84439; 84443; 85025

== ENCOUNTER → 2024-03-05 | Outpatient (CLI) | payer MEDICARE, OTHER | END | disposition home or self-care (01) | LOC: Rad HDHVI 08:01 | PROVIDERS: ATTEND Internal Medicine Cardiovascular Disease | DX: I10 Essential (primary) hypertension (principal) | CPT/HCPCS: 93880 ==

== ENCOUNTER → 2024-03-07 | Outpatient (CLI) | payer MEDICARE, OTHER ==
[~2024-03-07] VITALS: Ht 157.5 cm; Wt 71.2 kg
[~2024-03-07] MED LIST changes: +ADENOSINE 60 MG in GIVE UN-DILUTED 0 ML IV ONE; +ADENOSINE 90 MG/30 ML INJ IV ONE; -IOHEXOL 350 MG/ML 100ML IJ ONE
--- NOTE | 2024-03-07 14:20 | DVHSR ---
APPROVED REPORT EXAM: Two-dimensional and M-mode echocardiogram with Doppler and color Doppler. DIMENSIONS LVDd4.5 (3.8-5.7cm)LA (2D)3.9 (1.9-4.0cm)Aortic Root3.0 (2.0-3.7cm) LVDs3.2 (2.5-4.0cm)LA (MM) (1.9-4.0cm)Aortic Cusp Exc1.9 (1.5-2.0cm) EF (%) 58.0 (55-70%)Rt. Atrium3.8 (1.9-4.0cm)Asc. Aorta3.3 cm IVSd0.9 (0.7-1.1cm)RV (D) (1.8-2.4cm) PWd0.9 (0.7-1.1cm) Mitral Valve MitralMitral Stenosis E wave0.90m/sMV Mean GR.mmHg A wave0.80m/sMV Peak GR.mmHg E/A ratio1.12D MVAcm2 Aortic Valve Aortic ValveAortic Stenosis V10.90m/Alfonso Mean GR.3mmHg V21.10m/Alfonso Peak GR.5mmHg LVOT Diameter2.2 (1.8-2.4cm)Doppler AVA3.11cm2 AI P 1/2 Tldy897.43ms Pulmonic Valve V20.60m/s Tricuspid Valve TR Velocity2.50m/s [id number] LEFT VENTRICLE The left ventricle is normal size. The left ventricle is normal in structure and function. The Ejection Fraction is within normal limits. RIGHT VENTRICLE The right ventricle is normal size. ATRIA The left atrial size is normal. The right atrium size is normal. The interatrial septum is intact with no evidence for an atrial septal defect. MITRAL VALVE The mitral valve is normal in structure and function. Mitral regurgitation is trace to mild. PULMONIC VALVE The pulmonic valve is not well visualized. TRICUSPID VALVE The tricuspid valve is grossly normal. There is trace to mild tricuspid regurgitation. AORTIC VALVE The aortic valve opens well. There is mild aortic regurgitation. GREAT VESSELS The aortic root is normal size. PERICARDIAL EFFUSION There is no pericardial effusion. Conclusion MILD TR MILD MR EF >55% MILD AI
== END | disposition home or self-care (01) ==
LOC: Rad HDHVI 07:56
PROVIDERS: ATTEND Internal Medicine Cardiovascular Disease
DX: I08.3 Combined rheumatic disorders of mitral, aortic and tricuspid valves (principal); I10 Essential (primary) hypertension
CPT/HCPCS: 78452; 93005; 93306; 96374; 96375; A9500; J0153